=== PATIENT | male | born 1980 | race Caucasian/White ===

== ENCOUNTER → 2019-10-16 | Outpatient (CLI) | payer OTHER ==
[2019-10-16 09:33] LABS: Appearance,Urine Clear (Clear); Bilirubin,Urine Negative (Negative); Blood,Urine Negative (Negative); Color,Urine Yellow; Glucose,Urine (UA) Negative (Negative); Ketones,Urine Negative (Negative); Leukocyte Esterase,Urine Negative (Negative); Nitrite,Urine Negative (Negative); PH, Urine 7.5 (5.0-8.0); Protein,Urine Negative (Negative); Urobilinogen,Urine <2.0 mg/dL (<2.0)
[2019-10-16 09:41] LABS: ALT 26 U/L (4-49); AST 29 U/L (17-59); African American GFR (CKD) >90 (>60 ml/min/1.73 sqM); Albumin 4.9 g/dL (3.5-5.0); Alkaline Phosphatase 61 U/L (38-126); Anion Gap 10 mmol/L; Blood Urea Nitrogen 18 mg/dL (9-20); Calcium 9.7 mg/dL (8.4-10.2); Carbon Dioxide 29 mmol/L (22-30); Chloride 103 mmol/L (98-107); Cholesterol 212 mg/dL (<200); Glucose 90 mg/dL (74-99); HDL Cholesterol 46 mg/dL (40-60); LDL Cholesterol,Calculated 124 mg/dL (0-99); Non-African American GFR(CKD) >90 (>60 ml/min/1.73 sqM); Potassium 4.7 mmol/L (3.5-5.1); Sodium 142 mmol/L (137-145); Total Bilirubin 0.7 mg/dL (0.2-1.3); Total Protein 7.9 g/dL (6.3-8.2); Triglycerides 212 mg/dL (<150)
--- NOTE | 2019-10-16 10:26 | P.STRESS ---
- Stress Test Note Stress Test Results/Findings: Exam Performed: stress echo exercise Exam Date: 10/16/19 Reason for Exam: CHEST PAIN Height: 5 ft 10 in Weight: 205 kg Protocol: PATRICIA Stage: 4 Duration of Exercise: 10:15 Resting Heart Rate: 85 Resting Blood Pressure: 117/65 Maximum Achieved Heart Rate: 173 Maximum Achieved Blood Pressure: 167/81 85% PMHR: 156 100% PMHR: 183 METS: 11.9 Technologist Comment: Stress Test Results/Findings: This is a status 9-year-old gentleman with history of exertional chest pain and shortness of breath, being evaluated for cardiac status. Stress data: Baseline EKG showed sinus rhythm with a DC interval and QRS duration. Blood pressure at rest is 117/65 pulse rate of 85. Patient walked to the Patricia protocol for 10 minutes and 15 seconds achieving a maximum heart rate of 173 with blood pressure 167/81. EKGs taken during and after x-ray did not reveal any significant changes from the baseline. Echo data: Baseline echo images showed normal wall motion and thickening. Exercise echo images showed augmentation of wall motion and thickening in all the segments. Final impression: #1. Negative stress test #2. Negative stress echo.
[2019-10-16 10:39] LABS: Basophils % (A) 0 %; Eosinophils # (A) 0.1 k/uL (0-0.7); Eosinophils % (A) 2 %; HCT 50.1 % (39.0-53.0); HGB 16.3 gm/dL (13.0-17.5); Lymphocytes # (A) 1.4 k/uL (1.0-4.8); Lymphocytes % (A) 27 %; MCH 30.2 pg (25.0-35.0); MCHC 32.6 g/dL (31.0-37.0); MCV 92.7 fL (80.0-100.0); Monocytes # (A) 0.3 k/uL (0-1.0); Monocytes % (A) 6 %; Neutrophils # (A) 3.2 k/uL (1.3-7.7); Neutrophils % (A) 63 %; Platelet Count 268 k/uL (150-450); RBC 5.41 m/uL (4.30-5.90); RDW 12.2 % (11.5-15.5); WBC 5.1 k/uL (3.8-10.6)
--- NOTE | 2019-10-17 16:31 | ECHOS ---
Stress Test Results/Findings: Exam Performed: stress echo exercise Exam Date: 10/16/19 Reason for Exam: CHEST PAIN Height: 5 ft 10 in Weight: 205 kg Protocol: PATRICIA Stage: 4 Duration of Exercise: 10:15 Resting Heart Rate: 85 Resting Blood Pressure: 117/65 Maximum Achieved Heart Rate: 173 Maximum Achieved Blood Pressure: 167/81 85% PMHR: 156 100% PMHR: 183 METS: 11.9 Technologist Comment: Stress Test Results/Findings: This is a status 9-year-old gentleman with history of exertional chest pain and shortness of breath, being evaluated for cardiac status. Stress data: Baseline EKG showed sinus rhythm with a MI interval and QRS duration. Blood pressure at rest is 117/65 pulse rate of 85. Patient walked to the Patricia protocol for 10 minutes and 15 seconds achieving a maximum heart rate of 173 with blood pressure 167/81. EKGs taken during and after x-ray did not reveal any significant changes from the baseline. Echo data: Baseline echo images showed normal wall motion and thickening. Exercise echo images showed augmentation of wall motion and thickening in all the segments. Final impression: #1. Negative stress test #2. Negative stress echo. KATHARINE
== END | disposition home or self-care (01) ==
LOC: RADNMMAIN 08:19
PROVIDERS: ATTEND Family Medicine
DX: R07.89 Other chest pain (principal); Z00.00 Encounter for general adult medical examination without abnormal findings
CPT/HCPCS: 36415; 80053; 80061; 81003; 84443; 85025; 93351